=== PATIENT | female | born 1975 | race Caucasian/White ===

== ENCOUNTER → 2019-10-05 | Outpatient (CLI) | payer BC ==
--- NOTE | 2019-10-05 15:43 | US ---
EXAMINATION TYPE: US pelvic complete DATE OF EXAM: 10/05/2019 COMPARISON: NONE CLINICAL HISTORY: N83.202 Cyst of ovary, patient experienced tenderness during pelvic exam on left. TECHNIQUE: Transabdominal (TA) Date of LMP: 2007 EXAM MEASUREMENTS: Uterus: Surgically absent Endometrial Stripe: Surgically absent Right Ovary: 2.6 x 1.8 x 1.6 cm Left Ovary: 2.6 x 1.8 x 2.0 cm 1. Uterus: Surgically absent 2. Endometrium: Surgically absent 3. Right Ovary: wnl 4. Left Ovary: Anechoic 1.3 x 1.2 cm left ovarian follicle. 5. Bilateral Adnexa: wnl 6. Posterior cul-de-sac: wnl IMPRESSION: Surgical absence of uterus. Atrophic ovaries with small simple appearing left ovarian fol licle. This could represent an involuting cyst.
--- NOTE | 2019-10-06 10:44 | MM ---
Reason for exam: screening (asymptomatic). Last mammogram was performed 7 years and 3 months ago. Physical Findings: A clinical breast exam by your physician is recommended on an annual basis and results should be correlated with mammographic findings. MG 3D Screening Mammo W/Cad Bilateral CC and MLO view(s) were taken. Prior study comparison: June 23, 2012, [facility] DIGITAL RIGHT MAMMOGRAM w/CAD. June 16, 2012, bilateral digital screening mammo w/CAD. The breast tissue is heterogeneously dense. This may lower the sensitivity of mammography. Finding: There are two less than 7 mm circumscribed oval mass in the upper outer quadrant, posterior position of the right breast. New finding since June 23, 2012 and June 16, 2012. ASSESSMENT: Incomplete: need additional imaging evaluation, BI-RAD 0 RECOMMENDATION: Ultrasound of the right breast. [facility] will attempt to contact patient to return for ultrasound.
== END | disposition home or self-care (01) ==
LOC: RADMAMWWP 13:13
PROVIDERS: ATTEND Family Medicine
DX: Z12.31 Encounter for screening mammogram for malignant neoplasm of breast (principal); N83.312 Acquired atrophy of left ovary; N83.311 Acquired atrophy of right ovary; Z90.710 Acquired absence of both cervix and uterus
CPT/HCPCS: 76856; 77063; 77067

== ENCOUNTER → 2019-10-13 | Outpatient (CLI) | payer BC ==
--- NOTE | 2019-10-13 09:54 | USB ---
Reason for exam: additional evaluation requested from abnormal screening. Physical Findings: Nurse Summary: patient states tender bilateral upper outer quadrant, worse on right x 1 year (nurse TM). US Breast Workup Limited RT Right limited breast ultrasound including focal area of concern, retroareolar and axilla demonstrates a 0.4 x 0.3 x 0.4cm lesion too small to characterize at 10 o'clock. These results were verbally communicated with the patient and result sheet given to the patient on 10/13/19. ASSESSMENT: Probably benign, BI-RAD 3 RECOMMENDATION: Follow-up diagnostic mammogram and ultrasound of the right breast in 6 months.
== END | disposition home or self-care (01) ==
LOC: RADUSWWP 09:01
PROVIDERS: ATTEND Family Medicine
DX: R92.8 Other abnormal and inconclusive findings on diagnostic imaging of breast (principal)

== ENCOUNTER → 2020-09-15 | Outpatient (CLI) | payer BC ==
--- NOTE | 2020-09-15 14:55 | XR ---
EXAMINATION TYPE: XR chest 2V DATE OF EXAM: 09/15/2020 COMPARISON: None INDICATION: Cough TECHNIQUE: Frontal and lateral views of the chest are obtained. FINDINGS: The heart size is normal. The pulmonary vasculature is normal. The lungs are clear. IMPRESSION: 1. No acute pulmonary process.
== END | disposition home or self-care (01) ==
LOC: RADXRMAIN 14:02
PROVIDERS: ATTEND Family Medicine
DX: R05 Cough (principal)
CPT/HCPCS: 71046

== ENCOUNTER → 2020-09-22 | Outpatient (CLI) | payer BC | END | disposition home or self-care (01) | LOC: LABWHC1 10:10 | PROVIDERS: ATTEND Family Medicine | DX: Z20.828 Contact with and (suspected) exposure to other viral communicable diseases (principal) | CPT/HCPCS: U0003; C9803 ==

== ENCOUNTER 2021-11-18 23:47 | Emergency (ER) | payer BC ==
--- NOTE | 2021-11-19 00:01 | ED ---
Overdose HPI - General Stated Complaint: Overdose Time Seen by Provider: 11/18/21 23:56 Source: RN notes reviewed, old records reviewed Mode of arrival: EMS Limitations: altered mental status - History of Present Illness Initial Comments: This is a 46-year-old female D to the emergency department F for evaluation. Patient fell at the bar today. Patient was significantly intoxicated was seen to be drinking throughout the night. Patient apparently did hit her head. Unsure if there was loss of consciousness or she had passed out prior to hitting the ground. Patient is in the ER now currently without complaints she is crying and emotional but no current headache chest pain shortness breath or abdominal pain. MD Complaint: accidental overdose (alcohol) -: hour(s) Intent: unwilling to say How Overdose Was Discovered: family/friend present at time Context: Intentional Overdose: drug/ETOH problems Context: Accidental Overdose: wanted to get high Associated Symptoms: nausea/vomiting Treatments Prior to Arrival: none - Related Data Allergies Allergy/AdvReac Type Severity Reaction Status Date / Time No Known Allergies Allergy Verified 11/19/21 00:10 Review of Systems ROS Statement: Those systems with pertinent positive or pertinent negative responses have been documented in the HPI. ROS Other: All systems not noted in ROS Statement are negative. General Exam General appearance: alert, appears intoxicated, anxious Head exam: Present: atraumatic, normocephalic, normal inspection Eye exam: Present: normal appearance, PERRL, EOMI. Absent: scleral icterus, conjunctival injection, periorbital swelling ENT exam: Present: normal exam, mucous membranes moist Neck exam: Present: normal inspection. Absent: tenderness, meningismus, lymphadenopathy Respiratory exam: Present: normal lung sounds bilaterally. Absent: respiratory distress, wheezes, rales, rhonchi, stridor Cardiovascular Exam: Present: regular rate, normal rhythm, normal heart sounds. Absent: systolic murmur, diastolic murmur, rubs, gallop, clicks GI/Abdominal exam: Present: soft, normal bowel sounds. Absent: distended, tenderness, guarding, rebound, rigid Extremities exam: Present: normal inspection, full ROM, normal capillary refill. Absent: tenderness, pedal edema, joint swelling, calf tenderness Back exam: Present: normal inspection Neurological exam: Present: alert, oriented X3, CN II-XII intact Psychiatric exam: Present: normal affect, normal mood Skin exam: Present: warm, dry, intact, normal color. Absent: rash Course Vital Signs 11/19/21 11/19/21 00:07 01:27 Temperature 98.0 F Pulse Rate 103 H 91 Respiratory 18 18 Rate Blood Pressure 130/87 128/79 O2 Sat by Pulse 96 98 Oximetry - Reevaluation(s) Reevaluation #1: Medical record is reviewed Patient symptoms are significantly improved here in the ER Patient informed results and questions answered Medical Decision Making - Medical Decision Making 46 female to ER after falling out of the bar possibly hitting had with severe alcohol intoxication denying drugs or alcohol abuse. Patient has admit bedside is going to take patient home - Radiology Data Radiology results: report reviewed (CT brain C-spine negative for traumatic injury), image reviewed Disposition Clinical Impression: Alcoholic intoxication, Fall Disposition: HOME SELF-CARE Condition: Good Instructions (If sedation given, give patient instructions): Alcohol Intoxication (ED) Is patient prescribed a controlled substance at d/c from ED?: No Referrals: Warren Huntley DO [Primary Care Provider] - 1-2 days
[2021-11-19 00:10] VITALS: RESP 18; TEMP 98
[2021-11-19] MEDS ORDERED: LORazepam 2 MG/ML INJ IV STA (00:15)
[2021-11-19] MEDS ORDERED: SODIUM CHLORIDE 0.9% 1,000 ML IV STA (00:15)
[2021-11-19] MEDS ORDERED: ONDANSETRON 4 MG/2 ML VIAL IVP STA (00:16)
[2021-11-19] MEDS ORDERED: ONDANSETRON ODT 4 MG TAB PO STA (00:23)
--- NOTE | 2021-11-19 00:59 | CT ---
EXAMINATION TYPE: CT brain cspine wo con DATE OF EXAM: 11/19/2021 COMPARISON: None HISTORY: ETOH/FALL CT DLP: 1551.4 mGycm Automated exposure control for dose reduction was used. Ventricles have normal size. There is no mass effect nor midline shift. There is no sign of intracran ial hemorrhage. Calvarium is intact. The skull base is intact. Cervical vertebra have normal spacing and alignment. Posterior elements are intact. There is no compr ession fracture. Facet joints are intact. Prevertebral soft tissues appear normal. IMPRESSION: Normal CT scan of the cervical spine. Normal CT scan of the brain.
[2021-11-19 01:29] VITALS: BP 128/79; PULSE 91
== END 2021-11-19 01:29 | disposition home or self-care (01) ==
LOC: EC 23:47
DX: F10.129 Alcohol abuse with intoxication, unspecified (principal); W18.39XA Other fall on same level, initial encounter; Y90.9 Presence of alcohol in blood, level not specified
CPT/HCPCS: 70450; 72125; 99284

== ENCOUNTER → 2023-04-04 | Outpatient (CLI) | payer BC ==
--- NOTE | 2023-04-04 11:04 | XR ---
EXAMINATION TYPE: XR chest 2V DATE OF EXAM: 04/04/2023 COMPARISON: Chest x-ray September 15, 2020 HISTORY: Chest pain. TECHNIQUE: Frontal and lateral views of the chest are obtained. FINDINGS: There is no focal air space opacity, pleural effusion, or pneumothorax seen. The cardiac silhouette size is stable and within normal limits. The osseous structures are intact. IMPRESSION: No acute process. No significant change from prior.
== END | disposition home or self-care (01) ==
LOC: RADXRMAIN 10:34
PROVIDERS: ATTEND Family Medicine
DX: R07.9 Chest pain, unspecified (principal)
CPT/HCPCS: 71046

== ENCOUNTER → 2023-04-10 | Outpatient (CLI) | payer BC ==
--- NOTE | 2023-04-10 09:22 | MM ---
Reason for Exam: Follow-up at short interval from prior study. Last mammogram was performed 3 year(s) and 6 month(s) ago. Patient History: Menarche at age 11. First Full-Term at age 14. Hysterectomy at age 32. Risk Values: Katerina 5 year model risk: 0.7%. NCI Lifetime model risk: 6.6%. Prior Study Comparison: 06/16/2012 Bilateral Screening Mammogram, [facility]. 06/23/2012 Right Diagnostic Mammogram, [facility]. 10/05/2019 Bilateral Screening Mammogram, [facility]. Tissue Density: The breast tissue is heterogeneously dense. This may lower the sensitivity of mammography. Findings: Analyzed By CAD. No new suspicious mass or group of microcalcifications within either breast. Chronic nodularity within the right breast. Overall Assessment: Benign, BI-RAD 2 Management: Screening Mammogram of both breasts in 1 year. A clinical breast exam by your physician is recommended on an annual basis and results should be correlated with mammographic findings. This exam should not preclude additional follow-up of suspicious palpable abnormalities. Results were given to the patient verbally at the time of exam. Electronically signed and approved by: Micah Canseco D.O.
== END | disposition home or self-care (01) ==
LOC: RADMAMWWP 08:51
PROVIDERS: ATTEND Family Medicine
DX: N64.4 Mastodynia (principal); R92.8 Other abnormal and inconclusive findings on diagnostic imaging of breast
CPT/HCPCS: 77062; 77066

== ENCOUNTER → 2023-12-11 | Outpatient (CLI) | payer BC ==
[2023-12-11 16:07] LABS: Basophils # (A) 0.1 k/uL (0-0.2); Basophils % (A) 1 %; Eosinophils # (A) 0.2 k/uL (0-0.7); Eosinophils % (A) 2 %; HCT 49.2 % (34.0-46.0); HGB 16.2 gm/dL (11.4-16.0); Lymphocytes # (A) 2.1 k/uL (1.0-4.8); Lymphocytes % (A) 20 %; MCH 31.4 pg (25.0-35.0); MCHC 32.9 g/dL (31.0-37.0); MCV 95.3 fL (80.0-100.0); Mean Platelet Volume 8.5; Monocytes # (A) 0.4 k/uL (0-1.0); Monocytes % (A) 4 %; Neutrophils # (A) 7.6 k/uL (1.3-7.7); Neutrophils % (A) 73 %; Platelet Count 262 k/uL (150-450); RBC 5.17 m/uL (3.80-5.40); WBC 10.5 k/uL (3.8-10.6)
[2023-12-11 16:37] LABS: ALT 20 U/L (4-34); AST 33 U/L (14-36); African American GFR (CKD) >90 (>60 ml/min/1.73 sqM); Albumin 4.9 g/dL (3.5-5.0); Albumin/Globulin Ratio 1.4; Alkaline Phosphatase 100 U/L (38-126); Anion Gap 13 mmol/L; Blood Urea Nitrogen 11 mg/dL (7-17); Calcium 10.4 mg/dL (8.4-10.2); Carbon Dioxide 25 mmol/L (22-30); Chloride 102 mmol/L (98-107); Globulin 3.6 g/dL; Glucose 105 mg/dL (74-99); Non-African American GFR(CKD) >90 (>60 ml/min/1.73 sqM); Potassium 4.4 mmol/L (3.5-5.1); Sodium 140 mmol/L (137-145); Total Bilirubin 0.5 mg/dL (0.2-1.3); Total Protein 8.5 g/dL (6.3-8.2)
--- NOTE | 2023-12-11 17:14 | CT ---
EXAMINATION TYPE: CT abdomen pelvis w con CT DLP: 843 mGycm, Automated exposure control for dose reduction was used. DATE OF EXAM: 12/11/2023 4:02 PM COMPARISON: None. CLINICAL INDICATION:Female, 48 years old with history of R10.32 LLQ PAIN; LLQ pain TECHNIQUE: Axial CT of the abdomen and pelvis. Sagittal and coronal reformats were created on a [employer] workstation. Contrast used:100 ml mL of Isovue 300 with IV Contrast, (none if empty) Oral contrast used: with Oral Contrast (none if empty) FINDINGS: LOWER CHEST: Mild subsegmental atelectasis towards the lung bases. Normal size heart. ABDOMEN LIVER: Unremarkable GALLBLADDER AND BILE DUCTS: Unremarkable gallbladder. No biliary ductal dilatation. PANCREAS: Unremarkable. SPLEEN: Unremarkable. ADRENAL GLANDS: Unremarkable. KIDNEYS AND URETERS: Kidneys enhance symmetrically. Tiny cyst in the upper pole left kidney best seen on delayed imaging. No evidence of hydronephrosis or visible renal calculus. Mildly prominent extra renal pelves. The ureters are unremarkable. PELVIS BLADDER: Unremarkable REPRODUCTIVE: The uterus appears absent, correlate for hysterectomy. Small soft tissue densities are believed to represent the ovaries. No evidence of pelvic mass. Phleboliths in the pelvis. ABDOMEN & PELVIS STOMACH AND BOWEL: Stomach and small bowel are nondistended, no evidence of obstruction. The append ix appears within normal limits. Fatty infiltration ileocecal valve. Contrast is present throughout the colon, mixed with stool. There is relative nondistention of the descending colon and distally. No focal abnormality is seen. PERITONEUM/RETROPERITONEUM: No evidence of pneumoperitoneum or free fluid. VASCULATURE: Mild to moderate atherosclerotic calcifications are present throughout the abdominal aor ta and its branches. No evidence of aortic aneurysm. Portal veins are enhancing. Splenic vein is pa tent. LYMPH NODES: No gross evidence for lymphadenopathy. SOFT TISSUE/ABDOMINAL WALL: Mild broad-based laxity between the abdominal rectus muscles with small s uperimposed umbilical hernia containing fat. MUSCULOSKELETAL: No acute osseous abnormalities. Minimal degenerative changes. IMPRESSION: No acute abnormality in the abdomen or pelvis.
== END | disposition home or self-care (01) ==
LOC: RADCTMAIN 13:33
PROVIDERS: ATTEND Family Medicine
DX: R10.32 Left lower quadrant pain (principal)
CPT/HCPCS: 80053; 85025; 74177; 36415; Q9967

== ENCOUNTER 2024-11-03 17:00 | Observation (INO) | payer BC ==
--- NOTE | 2024-11-03 17:32 | ED ---
General Adult HPI - General Chief complaint: Chest Pain Stated complaint: chest pain Time Seen by Provider: 11/03/24 17:13 Source: patient, RN notes reviewed Mode of arrival: ambulatory Limitations: no limitations - History of Present Illness Initial comments: Patient is a 49-year-old female present to the emergency department with concerns with chest discomfort. Patient has had some mild burning in her back for the past couple weeks. Patient had sharp discomfort under her left breast starting yesterday. Patient has had some chest pressure today. Chest pressure is currently mild. Discomfort is 3/10. Patient questions if she may have mild dyspnea. No nausea. No diaphoresis. No history of similar symptoms previously. - Related Data Home Medications Medication Instructions Recorded Confirmed methylPREDNISolone [Medrol Dose See Taper PO DIRECTED 11/03/24 11/03/24 Pack] Allergies Allergy/AdvReac Type Severity Reaction Status Date / Time codeine Allergy Wheezing Verified 11/03/24 18:50 Review of Systems ROS Statement: Those systems with pertinent positive or pertinent negative responses have been documented in the HPI. ROS Other: All systems not noted in ROS Statement are negative. Constitutional: Denies: fever Eyes: Denies: eye pain ENT: Denies: ear pain Respiratory: Reports: as per HPI Cardiovascular: Reports: as per HPI, chest pain Endocrine: Denies: fatigue Gastrointestinal: Denies: abdominal pain Musculoskeletal: Reports: as per HPI Neurological: Denies: headache, weakness Past Medical History Past Medical History: COPD Additional Past Medical History / Comment(s): peripheral neuropathy, History of Any Multi-Drug Resistant Organisms: None Reported Past Surgical History: Section, Hysterectomy, Orthopedic Surgery, Tubal Ligation Additional Past Surgical History / Comment(s): cyst removal from abdomen, D&C Past Psychological History: No Psychological Hx Reported Smoking Status: Current every day smoker Past Alcohol Use History: Heavy Past Drug Use History: None Reported General Exam Limitations: no limitations General appearance: alert, in no apparent distress Head exam: Present: normocephalic Eye exam: Present: normal appearance Neck exam: Present: normal inspection Respiratory exam: Present: normal lung sounds bilaterally. Absent: chest wall tenderness Cardiovascular Exam: Present: regular rate, normal rhythm, normal heart sounds Expanded Peripheral pulses: 2+: Radial (R), Radial (L), Dorsalis Pedis (R), Dorsalis Pedis (L) GI/Abdominal exam: Present: soft. Absent: distended, tenderness, pulsatile mass Extremities exam: Present: normal inspection. Absent: pedal edema, calf tenderness Back exam: Present: normal inspection. Absent: tenderness Neurological exam: Present: alert Psychiatric exam: Present: normal affect, normal mood Skin exam: Present: normal color Course Vital Signs 11/03/24 11/03/24 11/03/24 17:07 17:48 18:35 Temperature 98.3 F 98 F Pulse Rate 115 H 93 105 H Respiratory 18 18 18 Rate Blood Pressure 128/72 113/83 102/67 O2 Sat by Pulse 98 96 94 L Oximetry EKG Findings - EKG Results: EKG: interpreted by ERMD, sinus rhythm, normal axis, normal QRS, normal ST/T Medical Decision Making - Medical Decision Making Was pt. sent in by a medical professional or institution (, PA, RESIDENTIAL THERAPIST, urgent care, hospital, or jail...) When possible be specific @ -No Did you speak to anyone other than the patient for history (EMS, parent, family, police, friend...)? What history was obtained from this source @ -No Did you review nursing and triage notes (agree or disagree)? Why? @ -I reviewed and agree with nursing and triage notes Were old charts reviewed (outside hosp., previous admission, EMS record, old EKG, old radiological studies, urgent care reports/EKG's, jail records)? Report findings @ -No old charts were reviewed Differential Diagnosis (chest pain, altered mental status, abdominal pain women, abdominal pain men, vaginal bleeding, weakness, fever, dyspnea, syncope, h eadache, dizziness, GI bleed, back pain, seizure, CVA, palpatations, mental health, musculoskeletal)? @ -Differential Chest Pain: Stable Angina, Unstable Angina, STEMI, NSTEMI Aortic Dissection, Pneumothorax, Musculoskeletal, Esophageal Spasm GERD, Cholecystitis, Pancreatitis, Zoster, this is not meant to be an all-inclusive list. EKG interpreted by me (3pts min.). @ -As above X-rays interpreted by me (1pt min.). @ -Chest x-ray shows no acute process CT interpreted by me (1pt min.). @ -None done U/S interpreted by me (1pt. min.). @ -None done What testing was considered but not performed or refused? (CT, X-rays, U/S, labs)? Why? @ -None What meds were considered but not given or refused? Why? @ -None Did you discuss the management of the patient with other professionals (diane hopper i.e. , PA, RESIDENTIAL THERAPIST, lab, RT, psych nurse, geriatric social worker, admiralty lawyer, teacher, security public safety officer, caseworker)? Give summary @ -Case was discussed with practitioner Roxana Yepez who will admit covering Dr. Huntley. Was smoking cessation discussed for >3mins.? @ -No Was critical care preformed (if so, how long)? @ -No Were there social determinants of health that impacted care today? How? (Homelessness, low income, unemployed, alcoholism, drug addiction, transportation, low edu. Level, literacy, decrease access to med. care, assisted, rehab)? @ -No Was there de-escalation of care discussed even if they declined (Discuss DNR or withdrawal of care, Hospice)? DNR status @ -No What co-morbidities impacted this encounter? (DM, HTN, Smoking, COPD, CAD, Cancer, CVA, ARF, Chemo, Hep., AIDS, mental health diagnosis, sleep apnea, morbid obesity)? @ -None Was patient admitted / discharged? Hospital course, mention meds given and route, prescriptions, significant lab abnormalities, going to OR and other pertinent info. @ -Patient presents with chest discomfort that seems to be somewhat progressin g. Initial evaluation unremarkable. Patient reevaluated and updated. Patient to be admitted with cardiac consult. Admission orders written. Undiagnosed new problem with uncertain prognosis? @ -No Drug Therapy requiring intensive monitoring for toxicity (Heparin, Nitro, Insulin, Cardizem)? @ -No Were any procedures done? @ -No Diagnosis/symptom? @ -Chest pain Acute, or Chronic, or Acute on Chronic? @ -Acute Uncomplicated (without systemic symptoms) or Complicated (systemic symptoms)? @ -Default Side effects of treatment? @ -No Exacerbation, Progression, or Severe Exacerbation? @ -No Poses a threat to life or bodily function? How? (Chest pain, [place], [place], pneumonia, PE, COPD, DKA, ARF, appy, cholecystitis, CVA, Diverticulitis, Homicidal, Suicidal, threat to staff... and all critical care pts) @ -No - Lab Data Result diagrams: 11/03/24 17:34 11/03/24 17:34 Lab Results 11/03/24 11/03/24 11/03/24 Range/Units 17:34 17:34 17:34 WBC 18.8 H (3.8-10.6) k/uL RBC 5.04 (3.80-5.40) m/uL Hgb 16.0 (11.4-16.0) gm/dL Hct 47.5 H (34.0-46.0) % MCV 94.2 (80.0-100.0) fL MCH 31.7 (25.0-35.0) pg MCHC 33.6 (31.0-37.0) g/dL RDW 12.9 (11.5-15.5) % Plt Count 254 (150-450) k/uL MPV 7.9 Neutrophils % 74 % Lymphocytes % 19 % Monocytes % 5 % Eosinophils % 1 % Basophils % 1 % Neutrophils # 13.9 H (1.3-7.7) k/uL Lymphocytes # 3.6 (1.0-4.8) k/uL Monocytes # 0.9 (0-1.0) k/uL Eosinophils # 0.2 (0-0.7) k/uL Basophils # 0.1 (0-0.2) k/uL PT 10.4 (10.0-12.5) sec INR 0.9 (<1.2) APTT 25.4 (22.0-30.0) sec D-Dimer 0.18 (<0.60) mg/L FEU Sodium 139 (137-145) mmol/L Potassium 3.6 (3.5-5.1) mmol/L Chloride 104 (98-107) mmol/L Carbon Dioxide 25 (22-30) mmol/L Anion Gap 10 mmol/L BUN 22 H (7-17) mg/dL Creatinine 1.25 H (0.52-1.04) mg/dL Est GFR (CKD-EPI)AfAm 58 (>60 ml/min/1.73 sqM) Est GFR (CKD-EPI)NonAf 50 (>60 ml/min/1.73 sqM) Glucose 118 H (74-99) mg/dL Calcium 9.7 (8.4-10.2) mg/dL Magnesium 1.9 (1.6-2.3) mg/dL Total Bilirubin 0.5 (0.2-1.3) mg/dL AST 28 (14-36) U/L ALT 23 (4-34) U/L Alkaline Phosphatase 84 (38-126) U/L Troponin I (0.000-0.034) ng/mL NT-Pro-B Natriuret Pep 86 pg/mL Total Protein 8.1 (6.3-8.2) g/dL Albumin 4.8 (3.5-5.0) g/dL Amylase 60 (30-110) U/L Lipase 82 (23-300) U/L 11/03/24 Range/Units 17:34 WBC (3.8-10.6) k/uL RBC (3.80-5.40) m/uL Hgb (11.4-16.0) gm/dL Hct (34.0-46.0) % MCV (80.0-100.0) fL MCH (25.0-35.0) pg MCHC (31.0-37.0) g/dL RDW (11.5-15.5) % Plt Count (150-450) k/uL MPV Neutrophils % % Lymphocytes % % Monocytes % % Eosinophils % % Basophils % % Neutrophils # (1.3-7.7) k/uL Lymphocytes # (1.0-4.8) k/uL Monocytes # (0-1.0) k/uL Eosinophils # (0-0.7) k/uL Basophils # (0-0.2) k/uL PT (10.0-12.5) sec INR (<1.2) APTT (22.0-30.0) sec D-Dimer (<0.60) mg/L FEU Sodium (137-145) mmol/L Potassium (3.5-5.1) mmol/L Chloride (98-107) mmol/L Carbon Dioxide (22-30) mmol/L Anion Gap mmol/L BUN (7-17) mg/dL Creatinine (0.52-1.04) mg/dL Est GFR (CKD-EPI)AfAm (>60 ml/min/1.73 sqM) Est GFR (CKD-EPI)NonAf (>60 ml/min/1.73 sqM) Glucose (74-99) mg/dL Calcium (8.4-10.2) mg/dL Magnesium (1.6-2.3) mg/dL Total Bilirubin (0.2-1.3) mg/dL AST (14-36) U/L ALT (4-34) U/L Alkaline Phosphatase (38-126) U/L Troponin I <0.012 (0.000-0.034) ng/mL NT-Pro-B Natriuret Pep pg/mL Total Protein (6.3-8.2) g/dL Albumin (3.5-5.0) g/dL Amylase (30-110) U/L Lipase (23-300) U/L Disposition Clinical Impression: Chest pain Disposition: ADMITTED IP TO THIS HOSP Is patient prescribed a controlled substance at d/c from ED?: No Referrals: Warren Huntley DO [Primary Care Provider] - 1-2 days Time of Disposition: 18:58
[2024-11-03 17:43] LABS: Basophils # (A) 0.1 k/uL (0-0.2); Basophils % (A) 1 %; Eosinophils # (A) 0.2 k/uL (0-0.7); Eosinophils % (A) 1 %; HCT 47.5 % (34.0-46.0); Lymphocytes # (A) 3.6 k/uL (1.0-4.8); Lymphocytes % (A) 19 %; MCH 31.7 pg (25.0-35.0); MCHC 33.6 g/dL (31.0-37.0); MCV 94.2 fL (80.0-100.0); Mean Platelet Volume 7.9; Monocytes # (A) 0.9 k/uL (0-1.0); Monocytes % (A) 5 %; Neutrophils # (A) 13.9 k/uL (1.3-7.7); Neutrophils % (A) 74 %; Platelet Count 254 k/uL (150-450); RBC 5.04 m/uL (3.80-5.40); RDW 12.9 % (11.5-15.5); WBC 18.8 k/uL (3.8-10.6)
[2024-11-03] MEDS: ASPIRIN 81 MG PO STA (17:49)
[2024-11-03] MEDS: NITROGLYCERIN OINT 1 INCH/GM PACKET TOPICAL STA (17:50)
--- NOTE | 2024-11-03 17:50 | XR ---
EXAMINATION TYPE: XR chest 2V DATE OF EXAM: 11/03/2024 5:46 PM COMPARISON: 04/04/2023 CLINICAL INDICATION: Female, 49 years old with history of Chest Pain, TECHNIQUE: XR chest 2V view(s) obtained. FINDINGS: The heart size is normal. The pulmonary vasculature is normal. The lungs are clear. IMPRESSION: 1. No acute pulmonary process. [facility], Workstation: [facility], 11/03/2024 5:47 PM
[2024-11-03 17:59] LABS: ALT 23 U/L (4-34); AST 28 U/L (14-36); African American GFR (CKD) 58 (>60 ml/min/1.73 sqM); Albumin 4.8 g/dL (3.5-5.0); Alkaline Phosphatase 84 U/L (38-126); Amylase 60 U/L (30-110); Anion Gap 10 mmol/L; Blood Urea Nitrogen 22 mg/dL (7-17); Calcium 9.7 mg/dL (8.4-10.2); Carbon Dioxide 25 mmol/L (22-30); Chloride 104 mmol/L (98-107); Glucose 118 mg/dL (74-99); Lipase 82 U/L (23-300); Magnesium 1.9 mg/dL (1.6-2.3); Non-African American GFR(CKD) 50 (>60 ml/min/1.73 sqM); Potassium 3.6 mmol/L (3.5-5.1); Sodium 139 mmol/L (137-145); Total Bilirubin 0.5 mg/dL (0.2-1.3); Total Protein 8.1 g/dL (6.3-8.2)
[2024-11-03 18:00] LABS: INR 0.9 (<1.2); Partial Thromboplastin Time 25.4 sec (22.0-30.0); Prothrombin Time 10.4 sec (10.0-12.5)
[2024-11-03 18:08] LABS: NT-Pro-B-Type Natriuretic Pept 86 pg/mL
[2024-11-03] MEDS ORDERED: NITROGLYCERIN SL TABS 0.4 MG TAB SUBLINGUAL PRN (18:58)
[2024-11-04] MEDS: NITROGLYCERIN OINT 1 INCH/GM PACKET TOPICAL SCH (00:24)
[2024-11-04 03:34] VITALS: RESP 16
[2024-11-04 04:09] LABS: HDL Cholesterol 37.7 mg/dL (40.00-60.00); VLDL Calculation 153.4 mg/dL (5.00-40.00)
[2024-11-04] MEDS: ASPIRIN 325 MG TAB PO SCH (08:18)
[2024-11-04] MEDS ORDERED: ASPIRIN 81 MG PO SCH (09:00)
[2024-11-04 09:08] VITALS: BP 89/64; PULSE 84; TEMP 98.3
--- NOTE | 2024-11-04 09:16 | CA ---
Transthoracic Echo Report Name: Josefina Willis Age: 49 Gender: F : 1975 Exam Date: 11/04/2024 07:26 Exam Location: [facility] Ht (in): 69 Wt (lb): 152 Ordering Physician: Cordell Mitchell DO Attending/Referring Phys: Mold Carrier Annabel Hernandez RDCS Procedure CPT: Indications: CP Cardiac Hx: Technical Quality: Fair Contrast 1: Total Dose (mL): Contrast 2: Total Dose (mL): MEASUREMENTS (Male / Female) Normal Values 2D ECHO LV Diastolic Diameter PLAX 5.4 cm 4.2 - 5.9 / 3.9 - 5.3 cm LV Systolic Diameter PLAX 4.1 cm IVS Diastolic Thickness 0.8 cm 0.6 - 1.0 / 0.6 - 0.9 cm LVPW Diastolic Thickness 0.8 cm 0.6 - 1.0 / 0.6 - 0.9 cm LV Relative Wall Thickness 0.3 RV Internal Dim ED PLAX 2.0 cm LA Systolic Diameter LX 3.8 cm 3.0 - 4.0 / 2.7 - 3.8 cm LV Diastolic Volume MOD BP 77.4 cm??? 67 - 155 / 56 - 104 cm??? LV Systolic Volume MOD BP 38.4 cm??? 22 - 58 / 19 - 49 cm??? LV Ejection Fraction MOD BP 50.4 % >= 55 % LV Cardiac Index MOD BP 1509.2 cm???/min???m??? LV Diastolic Volume MOD 4C 80.9 cm??? LV Systolic Volume MOD 4C 35.9 cm??? LV Ejection Fraction MOD 4C 55.7 % LV Cardiac Index MOD 4C 1744.5 cm???/min???m??? LV Diastolic Length 4C 7.0 cm LV Systolic Length 4C 5.5 cm LV Diastolic Volume MOD 2C 69.0 cm??? LV Systolic Volume MOD 2C 38.4 cm??? LV Ejection Fraction MOD 2C 44.3 % LV Cardiac Index MOD 2C 1183.0 cm???/min???m??? LV Diastolic Length 2C 6.4 cm LV Systolic Length 2C 6.0 cm LA Volume 35.4 cm??? 18 - 58 / 22 - 52 cm??? LA Volume Index 19.3 cm???/m??? 16 - 28 cm???/m??? M-MODE Aortic Root Diameter MM 3.1 cm LA Systolic Diameter MM 2.6 cm LA Ao Ratio MM 0.8 AV Cusp Separation MM 1.9 cm DOPPLER MV Area PHT 3.2 cm??? Mitral E Point Velocity 54.4 cm/s Mitral A Point Velocity 57.6 cm/s Mitral E to A Ratio 0.9 MV Deceleration Time 236.7 ms FINDINGS Left Ventricle Left ventricular ejection fraction is estimated at 40-45 %. Mildly increased left ventricular diastolic diameter. Mildly-Moderately decreased left ventricular ejection fraction. Left ventricular wall thickness normal. Mildly- Moderately reduced global left ventricular systolic function. Right Ventricle Normal right ventricular size and function. Unable to estimate the right ventricular systolic pressure. Right Atrium Normal right atrial size. Left Atrium Normal left atrial size. Mitral Valve Structurally normal mitral valve. Trace mitral regurgitation. No mitral stenosis. Aortic Valve Trileaflet aortic valve. No aortic valve stenosis or regurgitation. Tricuspid Valve Structurally normal tricuspid valve. Trace tricuspid regurgitation. No tricuspid stenosis. Pulmonic Valve Structurally normal pulmonic valve. Trace pulmonic regurgitation. No pulmonic stenosis. Pericardium Minimal pericardial effusion (normal variant). No pleural effusion. Aorta Normal size aortic root and proximal ascending aorta. CONCLUSIONS Left ventricular ejection fraction 40-45% with relatively global hypokinesis with some more inferior hypokinesis Trace mitral regurgitation Trace tricuspid regurgitation Previewed by: Dr. Gianluca Joshua DO (Electronically Signed) Final Date: 04 November 2024 09:15
[2024-11-04] MEDS ORDERED: ALPRAZolam 0.25 MG TAB PO PRN (09:31)
[2024-11-04] MEDS ORDERED: NITROGLYCERIN SL TABS 0.4 MG TAB SUBLINGUAL PRN (09:31)
[2024-11-04] MEDS ORDERED: ALPRAZolam 0.5 MG TAB PO PRN (09:31)
--- NOTE | 2024-11-04 09:41 | P.CRDCN ---
History of Present Illness History of present illness: HISTORY OF PRESENT ILLNESS: This is a 49-year-old female with a past medical history significant for emphysema and nicotine dependence. Patient does not follow with a macaroni maker. We have been asked to see the patient in consultation for chest pain. Patient examined at the bedside. Patient states she has been having back pain for the past couple weeks and pain in between her shoulder blades. She states the pain has been fairly constant. She went to urgent care to be evaluated and had some blood work done and an EKG. She was told her EKG looked okay and she was sent home. She states that she received a call afterwards and told that she had some abnormal blood work and they recommended she see a macaroni maker. It appears that the patient's CPK level was elevated at 4.4. Yesterday she developed chest discomfort. She states the pain was in the middle of her chest and felt like a lot of pressure. She also reported feeling lightheaded. She states that she laid down and rested and the pain did seem to get better. She denied having any nausea or vomiting. She is a current cigarette smoker. She reports occasional alcohol use. Denies any drug use including marijuana. At the time of examination this morning, she denies any chest pain or pressure. DIAGNOSTICS: - EKG reveals sinus mechanism with no signs of acute ischemia. - Chest xray negative for acute process - Laboratory data: WBC 18.8. Hemoglobin 16.0. Platelet count 254. D-dimer 0.18. Sodium 139. Potassium 3.6. BUN 22. Creatinine 1.25. Magnesium 1.9. Troponin negative x 3. Triglycerides 767. Cholesterol 264. LDL direct 136. VLDL 153. HDL 37. - Current home cardiac medications include none - Echocardiogram obtained this admission reveals ejection fraction 40 to 45% with relatively global hypokinesis with some more inferior hypokinesis, trace MR, trace TR REVIEW OF SYSTEMS: At the time of my exam: CONSTITUTIONAL: Denies fever or chills. HEENT: Denies blurred vision, vision changes, or eye pain. Denies hemoptysis CARDIOVASCULAR: Denies chest pain. Denies orthopnea. Denies PND. Denies palpitations RESPIRATORY: Denies shortness of breath. GASTROINTESTINAL: Denies abdominal pain. Denies nausea or vomiting. HEMATOLOGIC: Denies bleeding disorders. GENITOURINARY: Denies any blood in urine. SKIN: Denies pruitis. Denies rash. PHYSICAL EXAM: VITAL SIGNS: Reviewed. GENERAL: Well-developed in no acute distress. HEENT: Head is normocephalic. Pupils are equal, round. Sclerae anicteric. Mucous membranes of the mouth are moist. Neck supple. No JVD or thyromegaly LUNGS: Respirations even and unlabored. Lungs essentially clear to auscultation bilaterally. HEART: Regular rate and rhythm. S1 and S2 heard. ABDOMEN: Soft. Nondistended. Nontender. EXTREMITIES: Normal range of motion. No clubbing or cyanosis. Peripheral pulses intact. No lower extremity edema NEUROLOGIC: Awake and alert. Oriented x 3. ASSESSMENT: Chest pain, troponin negative x 3 Mild cardiomyopathy, EF 40 to 45%, ischemic versus nonischemic Hyperlipidemia, LDL direct 136, VLDL 153 Hypertriglyceridemia, 767 Nicotine dependence PLAN: 2D echo obtained and reviewed Begin aspirin 81 mg daily Begin atorvastatin 40 mg at night Recommend cardiac catheterization to evaluate cardiomyopathy and rule out CAD. Patient agreeable Patient to undergo cardiac catheterization today with Dr. Joshua Smoking cessation recommended. Patient to be referred to [place] quit line upon discharge Further recommendations pending patient course Nurse practitioner note has been reviewed by physician. Signing provider agrees with the documented findings, assessment, and plan of care documented by AMBULANCE OFFICER as a scribe. Past Medical History Past Medical History: COPD Additional Past Medical History / Comment(s): peripheral neuropathy, History of Any Multi-Drug Resistant Organisms: None Reported Past Surgical History: Section, Hysterectomy, Orthopedic Surgery, Tubal Ligation Additional Past Surgical History / Comment(s): cyst removal from abdomen, D&C, tubal reversal, right knee surgery Past Anesthesia/Blood Transfusion Reactions: No Reported Reaction Past Psychological History: No Psychological Hx Reported Smoking Status: Current every day smoker Past Alcohol Use History: Heavy Additional Past Alcohol Use History / Comment(s): Patient states she does not drink every day anymore, but about once a week, usually drinks heavily on that day. Past Drug Use History: None Reported Medications and Allergies Home Medications Medication Instructions Recorded Confirmed Type methylPREDNISolone [Medrol Dose See Taper PO DIRECTED 11/03/24 11/03/24 History Pack] Allergies Allergy/AdvReac Type Severity Reaction Status Date / Time codeine Allergy Wheezing Verified 11/03/24 18:50 Physical Exam Vitals: Vital Signs Temp Pulse Pulse Resp BP BP Pulse Ox 11/04/24 07:51 93 L 11/04/24 03:04 97.8 F 79 16 99/58 94 L 11/03/24 21:16 98.5 F 84 16 110/66 95 11/03/24 20:43 96 18 98/77 94 L 11/03/24 18:35 98 F 105 H 18 102/67 94 L 11/03/24 17:48 93 18 113/83 96 11/03/24 17:07 98.3 F 115 H 18 128/72 98 Intake and Output 11/03/24 11/04/24 11/04/24 22:59 06:59 14:59 Other: # Voids 0 1 Weight 68.946 kg Results 11/03/24 17:34 11/03/24 17:34 Cardiac Enzymes 11/03/24 11/03/24 11/03/24 Range/Units 17:34 17:34 20:35 AST 28 (14-36) U/L Troponin I <0.012 <0.012 (0.000-0.034) ng/mL 11/03/24 Range/Units 23:49 AST (14-36) U/L Troponin I <0.012 (0.000-0.034) ng/mL Coagulation 11/03/24 Range/Units 17:34 PT 10.4 (10.0-12.5) sec APTT 25.4 (22.0-30.0) sec Lipids 11/03/24 Range/Units 17:34 Triglycerides 767.00 H (0.00-149.00) mg/dL Cholesterol 264.00 H (0.00-200.00) mg/dL HDL Cholesterol 37.70 L (40.00-60.00) mg/dL Cholesterol/HDL Ratio 7.00 Ratio CBC 11/03/24 Range/Units 17:34 WBC 18.8 H (3.8-10.6) k/uL RBC 5.04 (3.80-5.40) m/uL Hgb 16.0 (11.4-16.0) gm/dL Hct 47.5 H (34.0-46.0) % Plt Count 254 (150-450) k/uL Comprehensive Metabolic Panel 11/03/24 Range/Units 17:34 Sodium 139 (137-145) mmol/L Potassium 3.6 (3.5-5.1) mmol/L Chloride 104 (98-107) mmol/L Carbon Dioxide 25 (22-30) mmol/L BUN 22 H (7-17) mg/dL Creatinine 1.25 H (0.52-1.04) mg/dL Glucose 118 H (74-99) mg/dL Calcium 9.7 (8.4-10.2) mg/dL AST 28 (14-36) U/L ALT 23 (4-34) U/L Alkaline Phosphatase 84 (38-126) U/L Total Protein 8.1 (6.3-8.2) g/dL Albumin 4.8 (3.5-5.0) g/dL Current Medications Generic Name Dose Route Start Last Admin Trade Name Freq PRN Reason Stop Dose Admin Aspirin 325 mg 11/04/24 09:00 11/04/24 08:18 Aspirin 325 Mg Tab PO 325 mg DAILY WAYNE Administration Nitroglycerin 0.4 mg 11/03/24 18:58 Nitroglycerin Sl Tabs 0.4 Mg Tab SUBLINGUAL Q5M PRN Chest Pain Nitroglycerin 0.5 inch 11/04/24 00:00 11/04/24 06:04 Nitroglycerin Oint 1 Inch/Gm Packet TOPICAL Not Given Q6HR WAYNE Intake and Output 11/03/24 11/04/24 11/04/24 22:59 06:59 14:59 Other: # Voids 0 1 Weight 68.946 kg 11/03/24 17:34 11/03/24 17:34
[2024-11-04] MEDS: ASPIRIN 325 MG TAB PO STA (10:31)
[2024-11-04] MEDS: SODIUM CHLORIDE 0.9% 1,000 ML in EMPTY BAG 1 BAG IV SCH (10:31)
[2024-11-04] MEDS: ATORVASTATIN 80 MG TAB PO STA (10:31)
--- NOTE | 2024-11-04 12:21 | P.HPIM ---
History of Present Illness 49-year-old female came in with complaints of chest pressure-like sensation nonexertional started while watching TV radiating between both shoulder blades associated lightheadedness denied any diaphoresis denied any associate shortness of breath troponins were negative EKG did not show any acute ST-T wave changes echocardiogram showed EF of around 40 to 45% with inferior hypokinesis predominantly and some global hypokinesis. Patient denied any nausea vomiting patient chest pain is nonpleuritic found to have creatinine of 1.25 on admission and the patient had leukocytosis 18,000 denied any UTI symptoms denied any cough chest x-ray did not show any significant abnormality. REVIEW OF SYSTEMS: All other systems are negative except those mentioned in the HPI PHYSICAL EXAMINATION: GENERAL: The patient is alert and oriented x3, not in any acute distress. Well developed, well nourished. HEENT: Pupils are round and equally reacting to light. EOMI. No scleral icterus. No conjunctival pallor. Normocephalic, atraumatic. No pharyngeal erythema. No thyromegaly. CARDIOVASCULAR: S1 and S2 present. No murmurs, rubs, or gallops. PULMONARY: Chest is clear to auscultation, no wheezing or crackles. ABDOMEN: Soft, nontender, nondistended, normoactive bowel sounds. No palpable organomegaly. MUSCULOSKELETAL: No joint swelling or deformity. EXTREMITIES: No cyanosis, clubbing, or pedal edema. NEUROLOGICAL: Gross neurological examination did not reveal any focal deficits. SKIN: No rashes. Assessment and plan Chest pain with a decreased EF new onset systolic dysfunction and wall motion abnormalities concern for significant coronary artery disease although acute coronary syndromes were ruled out. Patient was offered cardiac authorization and/or stress test patient declined both wanted to be discharged -Leukocytosis reactive in nature no evidence of infection at this time clinically -Mild acute renal failure patient received IV fluids in ER will repeat CBC and a BNP before her discharge -Nicotine use smokes about 1 and half packs per day counseling was provided -Hyperlipidemia patient will be discharged on statin LDL is 136 hypertriglyceridemia statin as mentioned above Patient wanted to be discharged will be discharged on a statin and aspirin as patient blood pressure is low we are not giving her prescription for beta- jenny nitroglycerin Past Medical History Past Medical History: COPD Additional Past Medical History / Comment(s): peripheral neuropathy, History of Any Multi-Drug Resistant Organisms: None Reported Past Surgical History: Section, Hysterectomy, Orthopedic Surgery, Tubal Ligation Additional Past Surgical History / Comment(s): cyst removal from abdomen, D&C, tubal reversal, right knee surgery Past Anesthesia/Blood Transfusion Reactions: No Reported Reaction Past Psychological History: No Psychological Hx Reported Smoking Status: Current every day smoker Past Alcohol Use History: Heavy Additional Past Alcohol Use History / Comment(s): Patient states she does not drink every day anymore, but about once a week, usually drinks heavily on that day. Past Drug Use History: None Reported Medications and Allergies Home Medications Medication Instructions Recorded Confirmed Type methylPREDNISolone [Medrol Dose See Taper PO DIRECTED 11/03/24 11/03/24 History Pack] Aspirin 81 mg PO DAILY #30 tab 11/04/24 Rx Atorvastatin [Lipitor] 40 mg PO HS #30 tab 11/04/24 Rx Allergies Allergy/AdvReac Type Severity Reaction Status Date / Time codeine Allergy Wheezing Verified 11/03/24 18:50 Physical Exam Vitals: Vital Signs Temp Pulse Pulse Resp BP BP Pulse Ox 11/04/24 07:51 93 L 11/04/24 07:20 98.3 F 84 16 89/64 94 L 11/04/24 03:04 97.8 F 79 16 99/58 94 L 11/03/24 21:16 98.5 F 84 16 110/66 95 11/03/24 20:43 96 18 98/77 94 L 11/03/24 18:35 98 F 105 H 18 102/67 94 L 11/03/24 17:48 93 18 113/83 96 11/03/24 17:07 98.3 F 115 H 18 128/72 98 Intake and Output 11/03/24 11/04/24 11/04/24 22:59 06:59 14:59 Other: # Voids 0 1 Weight 68.946 kg Results CBC & Chem 7: 11/03/24 17:34 11/03/24 17:34 Labs: Abnormal Lab Results - Last 24 Hours (Table) 11/03/24 11/03/24 11/03/24 Range/Units 17:34 17:34 17:34 WBC 18.8 H (3.8-10.6) k/uL Hct 47.5 H (34.0-46.0) % Neutrophils # 13.9 H (1.3-7.7) k/uL BUN 22 H (7-17) mg/dL Creatinine 1.25 H (0.52-1.04) mg/dL Glucose 118 H (74-99) mg/dL Triglycerides 767.00 H (0.00-149.00) mg/dL Cholesterol 264.00 H (0.00-200.00) mg/dL LDL Cholesterol Direct 136.00 H (0.00-129.00) mg/dL VLDL Cholesterol, Calc 153.40 H (5.00-40.00) mg/dL HDL Cholesterol 37.70 L (40.00-60.00) mg/dL
--- NOTE | 2024-11-04 12:22 | P.DS ---
Providers Date of admission: 11/03/24 19:00 Attending physician: Selvin Grace Consults: 11/03/24 18:58 Consult Physician Urgent Consulting Provider: Jose Miguel Pruitt Consult Reason/Comments: cp Do you want consulting provider notified?: Yes Primary care physician: [facility] Course: 49-year-old female came in with complaints of chest pressure-like sensation nonexertional started while watching TV radiating between both shoulder blades associated lightheadedness denied any diaphoresis denied any associate shortness of breath troponins were negative EKG did not show any acute ST-T wave changes echocardiogram showed EF of around 40 to 45% with inferior hypokinesis predominantly and some global hypokinesis. Patient denied any nausea vomiting patient chest pain is nonpleuritic found to have creatinine of 1.25 on admission and the patient had leukocytosis 18,000 denied any UTI symptoms denied any cough chest x-ray did not show any significant abnormality. REVIEW OF SYSTEMS: All other systems are negative except those mentioned in the HPI PHYSICAL EXAMINATION: GENERAL: The patient is alert and oriented x3, not in any acute distress. Well developed, well nourished. HEENT: Pupils are round and equally reacting to light. EOMI. No scleral icterus. No conjunctival pallor. Normocephalic, atraumatic. No pharyngeal erythema. No thyromegaly. CARDIOVASCULAR: S1 and S2 present. No murmurs, rubs, or gallops. PULMONARY: Chest is clear to auscultation, no wheezing or crackles. ABDOMEN: Soft, nontender, nondistended, normoactive bowel sounds. No palpable organomegaly. MUSCULOSKELETAL: No joint swelling or deformity. EXTREMITIES: No cyanosis, clubbing, or pedal edema. NEUROLOGICAL: Gross neurological examination did not reveal any focal deficits. SKIN: No rashes. Assessment and plan Chest pain with a decreased EF new onset systolic dysfunction and wall motion abnormalities concern for significant coronary artery disease although acute coronary syndromes were ruled out. Patient was offered cardiac authorization and/or stress test patient declined both wanted to be discharged -Leukocytosis reactive in nature no evidence of infection at this time cli nically -Mild acute renal failure patient received IV fluids in ER will repeat CBC and a BNP before her discharge -Nicotine use smokes about 1 and half packs per day counseling was provided -Hyperlipidemia patient will be discharged on statin LDL is 136 hypertriglyceridemia statin as mentioned above Patient wanted to be discharged will be discharged on a statin and aspirin as patient blood pressure is low we are not giving her prescription for beta- jenny nitroglycerin Plan - Discharge Summary Discharge Rx Participant: No New Discharge Prescriptions: New Aspirin 81 mg PO DAILY #30 tab Atorvastatin [Lipitor] 40 mg PO HS #30 tab Continue methylPREDNISolone [Medrol Dose Pack] See Taper PO DIRECTED Discharge Medication List methylPREDNISolone [Medrol Dose Pack] See Taper PO DIRECTED 11/03/24 [History] Aspirin 81 mg PO DAILY #30 tab 11/04/24 [Rx] Atorvastatin [Lipitor] 40 mg PO HS #30 tab 11/04/24 [Rx] Follow up Appointment(s)/Referral(s): Warren Huntley DO [Primary Care Provider] - 3 Days Discharge Disposition: HOME SELF-CARE
[2024-11-04 12:46] LABS: HCT 43.9 % (34.0-46.0); HGB 14.6 gm/dL (11.4-16.0); MCH 31.1 pg (25.0-35.0); MCHC 33.2 g/dL (31.0-37.0); MCV 93.7 fL (80.0-100.0); Mean Platelet Volume 8.2; Platelet Count 210 k/uL (150-450); RBC 4.69 m/uL (3.80-5.40); RDW 13.3 % (11.5-15.5); WBC 10.1 k/uL (3.8-10.6)
[2024-11-04 13:05] LABS: African American GFR (CKD) >90 (>60 ml/min/1.73 sqM); Anion Gap 4 mmol/L; Blood Urea Nitrogen 21 mg/dL (7-17); Calcium 9.2 mg/dL (8.4-10.2); Carbon Dioxide 24 mmol/L (22-30); Chloride 111 mmol/L (98-107); Glucose 87 mg/dL (74-99); Non-African American GFR(CKD) >90 (>60 ml/min/1.73 sqM); Potassium 4.1 mmol/L (3.5-5.1); Sodium 139 mmol/L (137-145)
[2024-11-04] MEDS ORDERED: METOPROLOL TARTRATE 12.5 MG TAB PO SCH (21:00)
[2024-11-04] MEDS ORDERED: ATORVASTATIN 40 MG TAB PO SCH (21:00)
[2024-11-05] MEDS ORDERED: HEPARIN SODIUM,PORCINE (1 ML) 2,500 UNIT in SODIUM CHLORIDE 0.9% 250 ML IRRIGATION PRN (07:00)
[2024-11-05] MEDS ORDERED: HEPARIN SODIUM,PORCINE 10,000 UNIT in SODIUM CHLORIDE 0.9% 1,000 ML IRRIGATION PRN (07:00)
[2024-11-05] MEDS ORDERED: ASPIRIN 81 MG PO SCH (09:00)
== END 2024-11-04 13:00 | disposition home or self-care (01) ==
LOC: EC 17:00 → 6NMEDSUR 19:00
PROVIDERS: ADMIT Hospitalist; ATTEND Hospitalist
DX: R07.89 Other chest pain (principal); M54.50 Low back pain, unspecified; D72.829 Elevated white blood cell count, unspecified; I42.9 Cardiomyopathy, unspecified; R42 Dizziness and giddiness; N17.9 Acute kidney failure, unspecified; E78.1 Pure hyperglyceridemia; F17.210 Nicotine dependence, cigarettes, uncomplicated; G62.9 Polyneuropathy, unspecified; J43.9 Emphysema, unspecified; Z79.899 Other long term (current) drug therapy; Z79.82 Long term (current) use of aspirin; Z90.710 Acquired absence of both cervix and uterus; Z88.5 Allergy status to narcotic agent
CPT/HCPCS: 99285; 36415; 94760; 93005; 93306; 85379; 83880; 80061; 80053; 80048; 82150; 83690; 83735; 84484; 85025; 85027; 85610; 85730; 83721; 71046; G0378 ×2

== ENCOUNTER 2024-11-16 10:18 | Day surgery (SDC) | payer BC ==
[~2024-11-16 10:18] MED LIST: ALPRAZolam 0.25 MG TAB PO PRN; ALPRAZolam 0.5 MG TAB PO PRN; ASPIRIN 325 MG TAB PO STA; NITROGLYCERIN SL TABS 0.4 MG TAB SUBLINGUAL PRN; SODIUM CHLORIDE 0.9% 1,000 ML in EMPTY BAG 1 BAG IV SCH
[2024-11-16] MEDS: IV FLUID CONTINUATION 1,000 ML IV ONE ×2 (10:40→11:59)
[2024-11-16 10:43] VITALS: TEMP 98.2
[2024-11-16] MEDS: MIDAZOLAM 2 MG/2 ML VIAL IVP ONE (12:33)
[2024-11-16] MEDS: fentaNYL (PF) 50 MCG/ML 2 ML AMP IVP ONE (12:37)
[2024-11-16] MEDS: HEPARIN SODIUM,PORCINE 10,000 UNIT in SODIUM CHLORIDE 0.9% 1,000 ML IRRIGATION PRN (12:38)
[2024-11-16] MEDS: HEPARIN SODIUM,PORCINE (1 ML) 2,500 UNIT in SODIUM CHLORIDE 0.9% 250 ML IRRIGATION PRN (12:38)
[2024-11-16] MEDS: LIDOCAINE 1% INJ 10MG/ML (20 ML MDV) SQ ONE (12:45)
[2024-11-16] MEDS: VERAPAMIL SYRINGE (5 MG/10 ML) INTRAARTER ONE ×2 (12:48→12:54)
[2024-11-16] MEDS: HEPARIN SODIUM 1,000 UN/ML (10ML VL) IV ONE (12:53)
[2024-11-16] MEDS: IOPAMIDOL-370 100ML BTL INJ ONE ×2 (13:06→13:07)
[2024-11-16] MEDS: SODIUM CHLORIDE 0.9% 1,000 ML IV ONE (13:07)
[2024-11-16 13:57] VITALS: RESP 16
[2024-11-16 14:27] VITALS: PULSE 84
[2024-11-16 14:53] VITALS: BP 90/51
--- NOTE | 2024-11-16 15:25 | P.CARDCATH ---
Description of Procedure: PROCEDURES PERFORMED: Left heart catheterization, bilateral coronary angiography, left ventriculogram, ultrasound guided arterial access INDICATION: cardiomyopathy CONSENT:I have discussed the risks, benefits and alternative therapies for the above-mentioned procedure and for both sedation/analgesia as well as necessary blood product administration, if indicated, as they pertain to this patient. The patient has indicated understanding and acceptance of the risks and procedures discussed. PROCEDURE: After the risks, benefits and alternatives of the above mentioned procedure explained in detail with the patient, informed consent was obtained. Patient was taken to the catheterization lab and prepped and draped in usual fashion. Ultrasound guidance was used to assess for arterial access. 1% lidocaine was used to anesthetize the right ulnar artery as the radial was smaller on ultrasound. A 6-Macanese sheath was placed in the right ulnar artery using modified Seldinger technique and ultrasound guidance. Left coronary angiography was performed with a 5-Macanese JL 3.5 catheter and right coronary angiography was performed with a 5-Macanese FR5 catheter in various views. A 5- [place] FR5 catheter was inserted into the left ventricle and pressure measurements were obtained. A 5-Macanese pigtail catheter was inserted in the left ventricle and left ventriculogram was performed with a power injection in the OLIVEIRA projection. The right radial sheath was removed and a TR band was placed with hemostasis achieved. The patient tolerated the procedure well. Patient was transported back to the post catheterization holding area in stable condition. Conscious Sedation: Patient was monitored under the direct supervision of myself for conscious sedation using Versed and fentanyl for a total duration of 17 minutes HEMODYNAMICS: Ao: 138/71 LV: 133/2, LVEDP 5 LEFT VENTRICULOGRAM: left ventricular ejection fraction 50-55% with mild global hypokinesis. No significant mitral regurgitation. SELECTIVE CORONARY ARTERIOGRAPHY: LEFT MAIN: The left main is a large caliber vessel which bifurcates into the LAD and circumflex. There is no significant stenosis. LEFT ANTERIOR DESCENDING CORONARY ARTERY: LAD is a large caliber vessel which wraps around to the apex. There is no significant stenosis. LEFT CIRCUMFLEX CORONARY ARTERY: Left circumflex is a moderate caliber vessel without significant stenosis. RIGHT CORONARY ARTERY: The right coronary artery is a large caliber vessel which gives off a PDA and PLV branch and is the dominant vessel. There is no significant stenosis. FINAL IMPRESSION: 1. Normal coronary arteries as described above. 2. Low normal left sided filling pressures 3. LV EF 50-55% PLAN: 1. Aggressive risk factor modification per most recent ACC/AHA guidelines. 2. Follow-up in the office in 1-2 weeks.
== END 2024-11-16 16:38 | disposition home or self-care (01) ==
LOC: CATHCVL 10:18
PROVIDERS: ATTEND Internal Medicine
DX: I42.9 Cardiomyopathy, unspecified (principal); E78.5 Hyperlipidemia, unspecified; R07.89 Other chest pain; R06.02 Shortness of breath; F17.210 Nicotine dependence, cigarettes, uncomplicated; Z79.82 Long term (current) use of aspirin; Z79.899 Other long term (current) drug therapy; Z88.5 Allergy status to narcotic agent
CPT/HCPCS: 93458; J2250; J1644 ×3; J2003; J3010; Q9967